=== PATIENT | female | born 1985 | race Caucasian/White ===

== ENCOUNTER → 2016-08-26 | Outpatient (CLI) | payer MEDICAID ==
[~2016-08-26] MED LIST: IBUP800T PO; SERT50TA PO
== END | disposition home or self-care (01) ==
LOC: CFH 10:02
PROVIDERS: ATTEND Internal Medicine Cardiovascular Disease
DX: I08.1 Rheumatic disorders of both mitral and tricuspid valves (principal)
CPT/HCPCS: 93306

== ENCOUNTER 2017-11-14 12:27 | Emergency (ER) | payer MEDICAID, OTHER ==
[~2017-11-14] VITALS: Ht 162.6 cm; Wt 79.1 kg
[~2017-11-14 12:27] MED LIST changes: +IBUP-1223 PO; -IBUP800T PO
[2017-11-14 12:35] VITALS: BP 106/72
[2017-11-14] MEDS ORDERED: ACETAMINOPHEN 500 MG TABLET ONE (13:04)
[2017-11-14] MEDS ORDERED: IBUPROFEN 200 MG TABLET ONE (13:04)
[2017-11-14] MEDS ORDERED: ACETAMINOPHEN 500 MG TABLET PO ONE (13:30)
[2017-11-14] MEDS ORDERED: IBUPROFEN 200 MG TABLET PO ONE (13:30)
== END 2017-11-14 14:16 | disposition home or self-care (01) ==
LOC: ED 14:00
DX: S16.1XXA Strain of muscle, fascia and tendon at neck level, initial encounter (principal); S29.012A Strain of muscle and tendon of back wall of thorax, initial encounter; E03.9 Hypothyroidism, unspecified; V49.9XXA Car occupant (driver) (passenger) injured in unspecified traffic accident, initial encounter; Y93.89 Activity, other specified; Y92.89 Other specified places as the place of occurrence of the external cause; Y99.8 Other external cause status
CPT/HCPCS: 72020; 72050; 72072; 99284

== ENCOUNTER 2018-07-04 20:18 | Outpatient (CLI) | payer OTHER ==
[~2018-07-04] VITALS: Ht 162.6 cm; Wt 88.0 kg
[2018-07-04 20:45] VITALS: BP 101/63
[2018-07-04 21:02] LABS: MICROSCOPIC AUTO
== END 2018-07-04 21:41 | disposition home or self-care (01) ==
LOC: LDOP 20:18
PROVIDERS: ATTEND Obstetrics & Gynecology
DX: O26.892 Other specified pregnancy related conditions, second trimester (principal); M54.9 Dorsalgia, unspecified; Z3A.22 22 weeks gestation of pregnancy
CPT/HCPCS: 59025; 81001; 87086; 99211; G0463